=== PATIENT | female | born 1955 | race African-American/Black ===

== ENCOUNTER 2016-11-28 04:57 | Observation (INO) | payer BC ==
[2016-11-28 05:00] VITALS: BP 210/99; PULSE 88; RESP 16; TEMP 98.9; O2SAT 96
[2016-11-28] MEDS ORDERED: METF500T PO (05:18)
[2016-11-28] MEDS ORDERED: LISI-515 PO (05:18)
[2016-11-28] MEDS ORDERED: ATOR20TA15 PO (05:18)
[2016-11-28 05:54] VITALS: O2SAT 99
--- NOTE | 2016-11-28 05:56 | PD ---
HPI Chief Complaint: Cardiac Complaint Time Seen by Provider: 05:36 Travel History International Travel<30 days: No Contact w/Intl Traveler<30days: No Traveled to known affect area: No History of Present Illness HPI 61yo F with PMH of HTN, DM, HLD, obesity presents to the ED with c/o right sided chest pain for 2 days. States pain is sharp and radiates to right shoulder and upper back. Denies any sob, fever, cough, n/v, diaphoresis, abdominal pain, focal weakness or numbness. Pt also with some itching in the right back. Denies previous similar chest pain or history of AR. Pt denies smoking cig, or cocaine use. PFSH Past Medical History High Cholesterol: Yes Diabetes: Yes Patient Takes Glucophage: Yes Diminished Hearing: No Hypertension: Yes Past Surgical History Cholecystectomy: Yes Social History Alcohol Use: No Tobacco Use: No Substance Use: No Allergies-Medications (Allergen,Severity, Reaction): Coded Allergies: Sulfamethoxazole (Verified Allergy, Intermediate, 11/28/16) RASH Reported Meds & Prescriptions Reported Meds & Active Scripts Active Ibuprofen 800 Mg Tab 800 Mg PO Q8H PRN 5 Days Reported Atorvastatin (Atorvastatin Calcium) 20 Mg Tab 20 Mg PO HS Metformin (Metformin HCl) 500 Mg Tab 500 Mg PO BIDPC With meals Lisinopril 20 Mg Tab 20 Mg PO DAILY Review of Systems Except as stated in HPI: all other systems reviewed are Neg Physical Exam Narrative GENERAL: 61yo F not in distress. SKIN: 2 1cm area of rash that appears like eczema, it is a dry plaque. HEAD: Atraumatic. Normocephalic. EYES: Pupils equal and round. No scleral icterus. No injection or drainage. ENT: No nasal bleeding or discharge. Mucous membranes pink and moist. NECK: Trachea midline. No JVD. CARDIOVASCULAR: Regular rate and rhythm. No murmur appreciated. RESPIRATORY: No accessory muscle use. Clear to auscultation. Breath sounds equal bilaterally. GASTROINTESTINAL: Abdomen soft, non-tender, nondistended. Hepatic and splenic margins not palpable. MUSCULOSKELETAL: No obvious deformities. No clubbing. No cyanosis. No edema. NEUROLOGICAL: Awake and alert. No obvious cranial nerve deficits. Motor grossly within normal limits. Normal speech. PSYCHIATRIC: Appropriate mood and affect; insight and judgment normal. Data Data Last Documented VS Vital Signs Date Time Temp Pulse Resp B/P Pulse Ox O2 Delivery O2 Flow Rate FiO2 11/28/16 08:00 80 20 142/82 99 Room Air 11/28/16 05:00 98.9 Orders Basic Metabolic Panel (Bmp) (11/28/16 05:48) Ckmb (Isoenzyme) Profile (11/28/16 05:48) Complete Blood Count With Diff (11/28/16 05:48) Magnesium (Mg) (11/28/16 05:48) Prothrombin Time / Inr (Pt) (11/28/16 05:48) Act Partial Throm Time (Ptt) (11/28/16 05:48) Troponin I (11/28/16 05:48) Chest, Single Ap (11/28/16 05:48) Ecg Monitoring (11/28/16 05:48) Bilateral Bp Monitoring (11/28/16 05:48) Iv Access Insert/Monitor (11/28/16 05:48) Oximetry (11/28/16 05:48) Oxygen Administration (11/28/16 05:48) Aspirin (Aspirin) (11/28/16 06:00) Lisinopril (Prinivil) (11/28/16 07:00) Acetaminophen (Tylenol) (11/28/16 07:00) Electrocardiogram (11/28/16 05:41) CKMB (11/28/16 06:20) CKMB% (11/28/16 06:20) Admit Order (Ed Use Only) (11/28/16 08:05) Labs Laboratory Tests Test 11/28/16 06:20 White Blood Count 6.9 TH/MM3 Red Blood Count 4.74 MIL/MM3 Hemoglobin 13.0 GM/DL Hematocrit 39.4 % Mean Corpuscular Volume 83.2 FL Mean Corpuscular Hemoglobin 27.4 PG Mean Corpuscular Hemoglobin 33.0 % Concent Red Cell Distribution Width 14.0 % Platelet Count 298 TH/MM3 Mean Platelet Volume 8.9 FL Neutrophils (%) (Auto) 47.2 % Lymphocytes (%) (Auto) 42.2 % Monocytes (%) (Auto) 7.6 % Eosinophils (%) (Auto) 2.2 % Basophils (%) (Auto) 0.8 % Neutrophils # (Auto) 3.3 TH/MM3 Lymphocytes # (Auto) 2.9 TH/MM3 Monocytes # (Auto) 0.5 TH/MM3 Eosinophils # (Auto) 0.2 TH/MM3 Basophils # (Auto) 0.1 TH/MM3 CBC Comment DIFF FINAL Differential Comment Prothrombin Time 10.5 SEC Prothromb Time International 1.0 RATIO Ratio Activated Partial 24.5 SEC Thromboplast Time Sodium Level 138 MEQ/L Potassium Level 3.6 MEQ/L Chloride Level 99 MEQ/L Carbon Dioxide Level 28.5 MEQ/L Anion Gap 11 MEQ/L Blood Urea Nitrogen 9 MG/DL Creatinine 0.81 MG/DL Estimat Glomerular Filtration 87 ML/MIN Rate Random Glucose 125 MG/DL Calcium Level 9.3 MG/DL Magnesium Level 1.9 MG/DL Total Creatine Kinase 192 U/L Creatine Kinase MB 1.5 NG/ML Troponin I LESS THAN 0.02 NG/ML MDM Medical Decision Making Medical Screen Exam Complete: Yes Emergency Medical Condition: Yes Interpretation(s) EKG: NSR 83bpm. LVH. No ST segment elevation or depression. Differential Diagnosis Musculoskeletal pain vs. costochondritis vs. ACS Narrative Course 61yo F with atypical chest pain. However, pt does have risk factors including HTN, HLD, DM and obesity. Pt has never had any cardiac work up so with do labs , CXR and give aspirin. The itching in right back is where the rash is and it appears like eczema to me. CXR negative. Pt also given lisinopril 20mg which she takes for her HTN. Sign out to next team to follow up labs. Diagnosis Primary Impression: Chest pain Qualified Code: R07.9 - Chest pain, unspecified type Scripts Ibuprofen 800 Mg Zip095 Mg PO Q8H PRN (PAIN SCALE 1 TO 10) 5 Days Ref 0 Prov:Oksana Stewart 11/28/16 Tangela Anderson DO Nov 28, 2016 05:56
[2016-11-28] MEDS ORDERED: ASPIRIN 325 MG TAB PO ONE (06:00)
--- NOTE | 2016-11-28 06:14 | RADRPT ---
EXAM DATE/TIME: 11/28/2016 06:09 [facility] COMPARISON: No previous studies available for comparison. INDICATIONS : Right sided chest pain. MEDICAL HISTORY : None. SURGICAL HISTORY : None. ENCOUNTER: Initial ACUITY: 2 days PAIN SCORE: 6/10 LOCATION: Right Chest FINDINGS: A single view of the chest demonstrates the lungs to be symmetrically aerated without evidence of mas s, infiltrate or effusion. The cardiomediastinal contours are unremarkable. Osseous structures are intact. CONCLUSION: No evidence of acute cardiopulmonary disease. Fidencio Ware MD on November 28, 2016 at 6:12 Board Certified Radiologist. This report was verified electronically.
[2016-11-28 06:57] LABS: AUTOMATED NEUTROPHIL # 3.3 TH/MM3 (1.8-7.7); BASOPHIL # 0.1 TH/MM3 (0-0.2); BASOPHIL % 0.8 % (0.0-2.0); EOSINOPHIL # 0.2 TH/MM3 (0-0.4); EOSINOPHIL % 2.2 % (0.0-4.0); HEMATOCRIT 39.4 % (35.0-46.0); HEMO FLAGS DIFF FINAL; LYMPH % 42.2 % (9.0-44.0); LYMPHOCYTE # 2.9 TH/MM3 (1.0-4.8); MEAN CELL VOLUME 83.2 FL (80.0-100.0); MEAN CORPUSCULAR HEMOGLOBIN 27.4 PG (27.0-34.0); MONO % 7.6 % (0.0-8.0); NEUT % 47.2 % (16.0-70.0); PLATELET COUNT 298 TH/MM3 (150-450); RED BLOOD COUNT 4.74 MIL/MM3 (4.00-5.30); WHITE BLOOD COUNT 6.9 TH/MM3 (4.0-11.0)
[2016-11-28] MEDS ORDERED: ACETAMINOPHEN 325 MG TAB PO ONE (07:00)
[2016-11-28] MEDS ORDERED: LISINOPRIL 20 MG TAB PO ONE (07:00)
[2016-11-28 07:09] LABS: APTT (PATIENT) 24.5 SEC (24.3-30.1); PROTHROMBIN TIME - PATIENT 10.5 SEC (9.8-11.6)
[2016-11-28 07:21] LABS: ANION GAP 11 MEQ/L (5-15); BICARBONATE 28.5 MEQ/L (21.0-32.0); BLOOD UREA NITROGEN 9 MG/DL (7-18); CHLORIDE 99 MEQ/L (98-107); GLOMERULAR FILTRATION RATE 87 ML/MIN (>89); MAGNESIUM 1.9 MG/DL (1.5-2.5); POTASSIUM 3.6 MEQ/L (3.5-5.1); SODIUM (NA) 138 MEQ/L (136-145)
[2016-11-28 07:26] LABS: CREATINE KINASE 192 U/L (26-192)
[2016-11-28 07:38] LABS: CKMB 1.5 NG/ML (0.5-3.6)
[2016-11-28 08:00] VITALS: BP 142/82; PULSE 80; RESP 20; O2SAT 99
--- NOTE | 2016-11-28 08:09 | PD ---
Physical Exam Date Seen by Provider: Nov 28, 2016 Time Seen by Provider: 08:07 Narrative 61-year-old female came to the emergency room with history of chest pain that started yesterday. Patient was seen by the previous ER physician and the case was signed out to me to follow-up on the blood test result. Dr. Anderson who saw her earlier was concerned about patient's risk factor for coronary artery disease. Patient has never had any workup to rule out coronary artery disease in the past. She does have history of hypertension and in fact when she came in her blood pressure was high. Patient was given a dose of her morning lisinopril. I went back and spoke with her. Blood test results of back and they're within normal limit. Her current blood pressure is 138/80 by manual sphygmomanometer. I've expressed to her my concern for acute coronary syndrome and the need to get a stress test done. Patient has agreed. She is admitted to the chest pain center for a workup. Data Data Last Documented VS Vital Signs Date Time Temp Pulse Resp B/P Pulse Ox O2 Delivery O2 Flow Rate FiO2 11/28/16 08:00 80 20 142/82 99 Room Air 11/28/16 05:00 98.9 Orders Basic Metabolic Panel (Bmp) (11/28/16 05:48) Ckmb (Isoenzyme) Profile (11/28/16 05:48) Complete Blood Count With Diff (11/28/16 05:48) Magnesium (Mg) (11/28/16 05:48) Prothrombin Time / Inr (Pt) (11/28/16 05:48) Act Partial Throm Time (Ptt) (11/28/16 05:48) Troponin I (11/28/16 05:48) Chest, Single Ap (11/28/16 05:48) Ecg Monitoring (11/28/16 05:48) Bilateral Bp Monitoring (11/28/16 05:48) Iv Access Insert/Monitor (11/28/16 05:48) Oximetry (11/28/16 05:48) Oxygen Administration (11/28/16 05:48) Aspirin (Aspirin) (11/28/16 06:00) Lisinopril (Prinivil) (11/28/16 07:00) Acetaminophen (Tylenol) (11/28/16 07:00) Electrocardiogram (11/28/16 05:41) CKMB (11/28/16 06:20) CKMB% (11/28/16 06:20) Admit Order (Ed Use Only) (11/28/16 08:05) Labs Laboratory Tests Test 11/28/16 06:20 White Blood Count 6.9 TH/MM3 Red Blood Count 4.74 MIL/MM3 Hemoglobin 13.0 GM/DL Hematocrit 39.4 % Mean Corpuscular Volume 83.2 FL Mean Corpuscular Hemoglobin 27.4 PG Mean Corpuscular Hemoglobin 33.0 % Concent Red Cell Distribution Width 14.0 % Platelet Count 298 TH/MM3 Mean Platelet Volume 8.9 FL Neutrophils (%) (Auto) 47.2 % Lymphocytes (%) (Auto) 42.2 % Monocytes (%) (Auto) 7.6 % Eosinophils (%) (Auto) 2.2 % Basophils (%) (Auto) 0.8 % Neutrophils # (Auto) 3.3 TH/MM3 Lymphocytes # (Auto) 2.9 TH/MM3 Monocytes # (Auto) 0.5 TH/MM3 Eosinophils # (Auto) 0.2 TH/MM3 Basophils # (Auto) 0.1 TH/MM3 CBC Comment DIFF FINAL Differential Comment Prothrombin Time 10.5 SEC Prothromb Time International 1.0 RATIO Ratio Activated Partial 24.5 SEC Thromboplast Time Sodium Level 138 MEQ/L Potassium Level 3.6 MEQ/L Chloride Level 99 MEQ/L Carbon Dioxide Level 28.5 MEQ/L Anion Gap 11 MEQ/L Blood Urea Nitrogen 9 MG/DL Creatinine 0.81 MG/DL Estimat Glomerular Filtration 87 ML/MIN Rate Random Glucose 125 MG/DL Calcium Level 9.3 MG/DL Magnesium Level 1.9 MG/DL Total Creatine Kinase 192 U/L Creatine Kinase MB 1.5 NG/ML Troponin I LESS THAN 0.02 NG/ML [facility] Supervised Visit with VALERIE: No Diagnosis Primary Impression: Chest pain Qualified Code: R07.9 - Chest pain, unspecified type Admitting Information Admitting Physician Requests: Observation Scripts Ibuprofen 800 Mg [id number] Mg PO Q8H PRN (PAIN SCALE 1 TO 10) 5 Days Ref 0 Prov:Oksana Stewart 11/28/16 Jamie Farah MD Nov 28, 2016 08:09
--- NOTE | 2016-11-28 08:56 | HHI.HP ---
HPI Primary Care Physician Joann Murcia MD Chief Complaint Chest pain History of Present Illness 61-year-old female with pertinent medical history of hypertension, diabetes, and hyperlipidemia presents to emergency room for further evaluation right- sided chest pain. Onset Thursday morning she was mopping at the time. Location right anterior chest with radiation to her right shoulder. Duration has been constant with waxing and waning intensity. No associated symptoms. Laying on her right side makes pain worse. Relieving factors include lifting her right arm above her head stating "eases up the pain." Does not believe she has had injury or trauma to area. Denies chest similar pain in the past. Review of Systems General: No fatigue,weakness, fever, chills, or recent illness. States she's been in her general state of health with no complaints other than what is stated above. HEENT: No LUZ, no vision changes, no nasal congestion or drainage, no dysphasia CV: As stated above. Currently has right-sided chest pain radiates to right shoulder. No intermittent leg pain or dizziness RESP: No SOB, cough, wheeze, or recent URI. No history of asthma. GI: No nausea, vomiting, bowel changes, diarrhea, constipation, pain, distention , melena, blood in the stool. : No dysuria, urgency, frequency EXT: No lower leg edema, occasionally left knee will have edema after long periods of standing. No numbness or tingling lower extremities. MS: Right-sided chest pain and right shoulder pain reproduced with passive ROM. NEURO: No dizziness, difficulty with balance, LOC, motor/sensory deficits PSYCH: No anxiety, depression SKIN: Pruritic small area on right shoulder blade area first noticed x2 days. Past Family Social History Allergies: Coded Allergies: Sulfamethoxazole (Verified Allergy, Intermediate, 11/28/16) RASH Past Medical History Hypertension, diabetes, hyperlipidemia Past Surgical History Cholecystectomy Reported Medications Reported Meds & Active Scripts Active Reported Atorvastatin (Atorvastatin Calcium) 20 Mg Tab 20 Mg PO HS Metformin (Metformin HCl) 500 Mg Tab 500 Mg PO BIDPC With meals Lisinopril 20 Mg Tab 20 Mg PO DAILY Family History Noncontributory for early onset cardiovascular disease Social History Known hypertension, diabetes, and hyperlipidemia. Lifelong nonsmoker. Denies any alcohol or illegal drug use. Endorses a sedentary lifestyle. Walks independently without the need of cane or walker. Past cardiac testing None Physical Exam Vital Signs Vital Signs Date Time Temp Pulse Resp B/P Pulse Ox O2 Delivery O2 Flow Rate FiO2 11/28/16 05:54 99 Room Air 11/28/16 05:54 99 Room Air 11/28/16 05:00 98.9 88 16 210/99 96 Room Air Physical Exam GENERAL: Alert WN, WD, NAD, pleasant, obese female HEAD: NC, AT EYES: Sclera clear, pupils equal and round ENT: Mucous membranes pink and moist NECK: Supple, no masses CV: RRR, without murmur, rub, gallop, no JVD, S1-S2 no S3-S4. RESP: Clear lungs throughout bilateral, no crackles, wheeze, rhonchi, symmetrical chest rise, nonlabored, able to speak in full sentences ABD: Soft, NT, ND, no masses, positive bowel tones, obese EXT: Pulses +24, no dependent edema MS: Normal tone 4 extremities, nontender, no obvious deformities, full range of motion NEURO: CN II through CN XII grossly intact, motor strength 5/5, gait WNL PSYCH: A+O 3, pleasant affect, appropriate speech, appropriate mood and affect , insight and judgment SKIN: Normal turgor, normal texture, few, erythematous, raised bumps in a small area, approx. 1 inch area on right shoulder blade. Brisk cap refill, even hair distribution Laboratory Laboratory Tests Test 11/28/16 06:20 White Blood Count 6.9 Red Blood Count 4.74 Hemoglobin 13.0 Hematocrit 39.4 Mean Corpuscular Volume 83.2 Mean Corpuscular Hemoglobin 27.4 Mean Corpuscular Hemoglobin 33.0 Concent Red Cell Distribution Width 14.0 Platelet Count 298 Mean Platelet Volume 8.9 Neutrophils (%) (Auto) 47.2 Lymphocytes (%) (Auto) 42.2 Monocytes (%) (Auto) 7.6 Eosinophils (%) (Auto) 2.2 Basophils (%) (Auto) 0.8 Neutrophils # (Auto) 3.3 Lymphocytes # (Auto) 2.9 Monocytes # (Auto) 0.5 Eosinophils # (Auto) 0.2 Basophils # (Auto) 0.1 CBC Comment DIFF FINAL Differential Comment Prothrombin Time 10.5 Prothromb Time International 1.0 Ratio Activated Partial 24.5 Thromboplast Time Sodium Level 138 Potassium Level 3.6 Chloride Level 99 Carbon Dioxide Level 28.5 Anion Gap 11 Blood Urea Nitrogen 9 Creatinine 0.81 Estimat Glomerular Filtration 87 Rate Random Glucose 125 Calcium Level 9.3 Magnesium Level 1.9 Total Creatine Kinase 192 Creatine Kinase MB 1.5 Troponin I LESS THAN 0.02 Result Diagram: 11/28/16 0620 11/28/16 0620 Imaging Last Impressions Chest X-Ray 11/28/16 0548 Signed Impressions: Service Date/Time: Monday, November 28, 2016 06:09 - CONCLUSION: No evidence of acute cardiopulmonary disease. Fidencio Ware MD Course EKG normal sinus rhythm, normal axis, no ST or T-segment changes Assessment and Plan Assessment and Plan #1 Chest painadmitted to the chest pain center. Will rule out with 2 sets of EKGs and cardiac enzymes. Seen and evaluated by Dr. My Uribe. Will complete exercise treadmill after second troponin resulted. Naturally if stress test is unremarkable will discharge later this afternoon. Discussed with patient in length chest discomfort atypical for cardiac pain and more likely related to musculoskeletal or arthritic pain in right shoulder. #2 Musculoskeletal painibuprofen 800 mg 3 times a day 5 days followed by over- the-counter ibuprofen twice daily for 5 days, instructed to take with food. Encouraged her to follow-up with PCP if pain persists. #3 Diabetescontinue metformin, encouraged daily activity seen no more than 48 hours of purposeful daily activity #4 Hypertensioncontinue lisinopril, encouraged low sodium diet #5 Hyperlipidemiacontinue atorvastatin, education provided on importance of compliance of medication and keeping all follow-up appointments with PCP #6 Atopic dermatitis-encouraged over the counter use of hydrocortisone cream to affected area. May also use over the counter Benadryl. Educated her medication may make her sleepy, therefore encouraged to take at hour of sleep. Follow up with primary care provider if area does not improve or worsen. Oksana Stewart Nov 28, 2016 08:56
[2016-11-28] MEDS ORDERED: NITROGLYCERIN 0.4 MG SL 25 TABS/BTL SL PRN (09:00)
[2016-11-28] MEDS ORDERED: SODIUM CHLORIDE 0.9% FLUSH 10 ML FLUSH IV FLUSH PRN (09:00)
[2016-11-28] MEDS ORDERED: SODIUM CHLORIDE 0.9% FLUSH 10 ML FLUSH IV FLUSH SCH (09:00)
[2016-11-28] MEDS ORDERED: ACETAMINOPHEN 500 MG CPLT PO PRN (09:00)
[2016-11-28] MEDS ORDERED: ONDANSETRON HCL 4 MG/2 ML VIAL IV PRN (09:00)
[2016-11-28] MEDS ORDERED: LISINOPRIL 20 MG TAB PO SCH (09:15)
[2016-11-28 10:26] VITALS: BP 158/76; PULSE 72; RESP 19; TEMP 98.1; O2SAT 99
[2016-11-28] MEDS ORDERED: IBUP800T23 PO (12:17)
--- NOTE | 2016-11-28 12:18 | HHI.DCPOC ---
Discharge Care Plan Diagnosis: (1) Musculoskeletal chest pain (2) Type 2 diabetes mellitus (3) Hypertension Goals to Promote Your Health * To prevent worsening of your condition and complications * To maintain your health at the optimal level Directions to Meet Your Goals Take your medications as prescribed Follow your dietary instruction Follow activity as directed Keep your appointments as scheduled Take your immunizations and boosters as scheduled If your symptoms worsen call your PCP, if no PCP go to Urgent Care Center or Emergency Room Smoking is Dangerous to Your Health. Avoid second hand smoke Call the 24-hour hour crisis hotline for domestic abuse at Oksana Stewart Nov 28, 2016 12:18
--- NOTE | 2016-11-28 15:17 | EKG ---
Date Performed: 11/28/2016 Time Performed: 09:18:45 PTAGE: 61 years EKG: Sinus rhythm NORMAL ECG PREVIOUS TRACING : 11/28/2016 05.41 Since previous tracing, no significant change noted DOCTOR: My Uribe Interpretating Date/Time 11/28/2016 15:16:47
--- NOTE | 2016-11-28 15:17 | TR ---
Date Performed: 11/28/2016 Time Performed: 11:36:15 DOCTOR: My Uribe DRUG LIST: CLINICAL HISTORY: CHEST PAIN REASON FOR TEST: REASON FOR ENDING: OBSERVATION: CONCLUSION: Sree protocol completed. Stopped sec to reaching target heart rate and leg fatigue. Maximum WG=686 Target HR Achieved=87.0% Maximum IA=177/88 Total Exercise Time=1:22. Poor exercise to lerance (patient did ambulate approx 1:30 prior to start of exam due to lead adjustment). Normal bp r esponse. Recovery quick and unremarkable. COMMENTS:
--- NOTE | 2016-11-28 15:17 | EKG ---
Date Performed: 11/28/2016 Time Performed: 05:41:55 PTAGE: 61 years EKG: Sinus rhythm MINIMAL VOLTAGE CRITERIA FOR LVH, CONSIDER NORMAL VARIANT BORDERLINE ECG NO PREVIOUS TRACING DOCTOR: My Uribe Interpretating Date/Time 11/28/2016 15:16:53
[2016-11-28] MEDS ORDERED: metFORMIN HCL 500 MG TAB PO SCH (18:00)
[2016-11-28] MEDS ORDERED: ATORVASTATIN 20 MG TAB PO SCH (21:00)
== END 2016-11-28 14:41 | disposition home or self-care (01) ==
LOC: NEPE 04:57 → NEDA 08:06 → NEPHCDU 09:56
PROVIDERS: ADMIT Internal Medicine Interventional Cardiology; ATTEND Internal Medicine Interventional Cardiology
DX: R07.89 Other chest pain (principal); M79.1 Myalgia; I10 Essential (primary) hypertension; E78.5 Hyperlipidemia, unspecified; E11.9 Type 2 diabetes mellitus without complications; E66.9 Obesity, unspecified; L20.9 Atopic dermatitis, unspecified; E78.00 Pure hypercholesterolemia, unspecified; Z88.2 Allergy status to sulfonamides; Z79.84 Long term (current) use of oral hypoglycemic drugs
CPT/HCPCS: 71010; 80048; 82550; 82552; 83735; 84484; 85025; 85610; 85730; 93005; 93017; 99285; G0378

== ENCOUNTER → 2017-02-02 | Day surgery (SDC) | payer BC ==
[~2017-02-02] MED LIST: ATOR20TA15 PO; IBUP800T23 PO; LACTATED RINGER'S 1000 ML INJ 1,000 ML ONE; LISI-515 PO; METF500T PO; PROPOFOL 500 MG/50 ML BTL IV ONE
--- NOTE | 2017-02-02 08:54 | GIPROC ---
[facility] [address], [address] COLONOSCOPY PROCEDURE REPORT EXAM DATE: 02/02/2017 PATIENT NAME: Eulalio Eng MR #: [id number] BIRTHDATE: 1955 ENDOSCOPIST: Chivo Linton MD ORDER #: [id number] NUTRITION ASSOCIATE: Aliya Tyler RN STATUS: outpatient INDICATIONS: The patient is a 61 yr old female here for a colonoscopy due to patient's immediate family history of colon cancer PROCEDURE PERFORMED: Colonoscopy, screening MEDICATIONS: None and Per Anesthesia. PREP QUALITY: 10 % obscured PREP TYPE:GoLytely ESTIMATED BLOOD LOSS: None CONSENT: The patient understands the risks and benefits of the procedure and understands that these risks include, but are not limited to: sedation, allergic reaction, infection, perforation and/or bleeding. Alternative means of evaluation and treatment include, among others: physical exam, x-rays, and/or surgical intervention. The patient elects to proceed with this endoscopic procedure. medical equipment was checked for proper function. Hand hygiene and appropriate measures for infection prevention was taken. After the risks, benefits and alternatives of the procedure were thoroughly explained, Informed consent was verified, confirmed and timeout was successfully executed by the treatment team. A digital exam revealed no abnormalities of the rectum The EC-[id number] ([id number]) endoscope was introduced through the anus and advanced to the cecum, which was identified by both the appendix and ileocecal valve. The instrument was then slowly withdrawn as the colon was fully examined. COLON FINDINGS: The colonic mucosa appeared normal. Some stool throughout the colon. Retroflexed views revealed medium internal hemorrhoids The scope was then completely withdrawn from the patient and the procedure terminated. ADVERSE EVENTS: There were no complications. IMPRESSIONS: 1. The colonic mucosa appeared normal 2. Some stool throughout the colon 3. Retroflexed views revealed medium internal hemorrhoids 4. Revealed no abnormalities of the rectum RECOMMENDATIONS: 1. High fiber diet 2. Yearly hemoccult RECALL: Return 3 years Colonoscopy longer prep Chivo Linton MD eSigned: Chivo Lniton MD 02/02/2017 8:54 AM cc: kristofer Granados
--- NOTE | 2017-02-02 08:58 | GIPROC ---
[facility] [address] [facility], [address] EGD PROCEDURE REPORT EXAM DATE: 02/02/2017 PATIENT NAME: Eulalio Eng MR #: [id number] BIRTHDATE: 1955 ATTENDING: Chivo Linton MD ORDER #: [id number] OYSTER PREPARER: Aliya Tyler RN STATUS: outpatient INDICATIONS: The patient is a 61 yr old female here for an EGD due to heartburn and dyspepsia PROCEDURE PERFORMED: EGD w/ biopsy MEDICATIONS: None and Per Anesthesia. TOPICAL ANESTHETIC: none CONSENT: The patient understands the risks and benefits of the procedure and understands that these risks include, but are not limited to: sedation, allergic reaction, infection, perforation and/or bleeding. Alternative means of evaluation and treatment include, among others: physical exam, x-rays, and/or surgical intervention. The patient elects to proceed with this endoscopic procedure. medical equipment was checked for proper function. Hand hygiene and appropriate measures for infection prevention was taken. After the risks, benefits and alternatives of the procedure were thoroughly explained, Informed consent was verified, confirmed and timeout was successfully executed by the treatment team. The patient was anesthetized with topical anesthesia and the EC-[id number] ([id number]) endoscope was introduced through the mouth and advanced to the second portion of the duodenum. Retroflexed views revealed a hiatal hernia The gastroscope was then slowly withdrawn and removed. Normal exam, Bx from antrum. to R/O H pylori. Irregular Z line Bx at EG junction. ADVERSE EVENTS: There were no complications. IMPRESSIONS: 1. Normal exam, Bx from antrum. to R/O H pylori 2. Irregular Z line Bx at EG junction 3. Retroflexed views revealed a hiatal hernia RECOMMENDATIONS: 1. Await biopsy results. Biopsy results will not be ready for 7-10 days. If you don't hear from us in two weeks, call our office for biopsy results. 2. Continue PPI 3. Avoid NSAIDS PATIENT CONDITION: stable DISPOSITION: Home REPEAT EXAM: Return as needed for EGD Chivo Linton MD eSigned: Chivo Linton MD 02/02/2017 8:58 AM cc: Joann Murcia MD
== END | disposition home or self-care (01) ==
LOC: ESDC 06:43
PROVIDERS: ATTEND Hospitalist
DX: Z12.11 Encounter for screening for malignant neoplasm of colon (principal); Z80.0 Family history of malignant neoplasm of digestive organs; K64.8 Other hemorrhoids; R12 Heartburn; R10.13 Epigastric pain; K22.9 Disease of esophagus, unspecified
CPT/HCPCS: 00740; 00810; 43239; 45378; 88305; 88312; J3010; J7120